=== PATIENT | female | born 1960 | race Hispanic/Latino ===

== ENCOUNTER 2020-10-25 10:46 | Inpatient (IN) | payer OTHER ==
[~2020-10-25] VITALS: Ht 149.9 cm; Wt 57.8 kg
[2020-10-25] MEDS ORDERED: CEFEPIME HCL 1GM 1 GM in SODIUM CHLORIDE 0.9% 50ML 50 ML IV STA ×2 (11:10→16:19)
[2020-10-25 12:11] LABS: BASOPHILS % 0.2 % (0.0-1.0); EOSINOPHILS % 0.6 % (0.0-6.0); HEMATOCRIT 34.4 % (34.2-44.1); HEMOGLOBIN 11.2 g/dL (12.0-16.0); LYMPHOCYTES # (AUTO) 0.5 (1.0-3.2); LYMPHOCYTES % 10.9 % (18.0-39.1); MEAN CORPUSCULAR HEMOGLOBIN 28.1 pg (28-32); MEAN CORPUSCULAR HGB CONC 32.6 g/dL (31-35); MEAN CORPUSCULAR VOLUME 86.4 fL (81-99); MONOCYTES # (AUTO) 0.4 (0.2-0.8); MONOCYTES % 8.9 % (4.4-11.3); NEUTROPHILS # (AUTO) 3.9 (2.1-6.9); NEUTROPHILS % 79.2 % (38.7-80.0); PLATELET COUNT 268 x10e3/uL (140-360); RED BLOOD COUNT 3.98 x10e6/uL (3.6-5.1); RED CELL DISTRIBUTION WIDTH 16.6 % (11.7-14.4)
[2020-10-25 12:23] LABS: INR 0.92
[2020-10-25 12:30] LABS: ALANINE AMINOTRANSFERASE 25 IU/L (0-55); ALBUMIN 3.1 g/dL (3.5-5.0); ALBUMIN/GLOBULIN RATIO 0.5 (0.8-2.0); ALKALINE PHOSPHATASE 70 IU/L (40-150); ANION GAP 13.7 mmol/L (8-16); BLOOD UREA NITROGEN 20 mg/dL (7-26); BUN/CREATININE RATIO 27 (6-25); CALCIUM 8.5 mg/dL (8.4-10.2); CARBON DIOXIDE 23 mmol/L (22-29); CHLORIDE 107 mmol/L (98-107); CREATININE, SERUM 0.73 mg/dL (0.57-1.11); EST GLOMERULAR FILTRATION RATE > 60 ML/MIN (60-); GLUCOSE 110 mg/dL (74-118); POTASSIUM 3.7 mmol/L (3.5-5.1); SODIUM 140 mmol/L (136-145)
[2020-10-25] MEDS: VANCOMYCIN 750MG/NS 150ML IVPB 150 ML IV SCH ×2 (17:11→19:58)
[2020-10-25 20:00] VITALS: BP 165/85
[2020-10-25 21:00] VITALS: BP 165/85
[2020-10-25 21:36] VITALS: BP 165/85
[2020-10-25] MEDS ORDERED: PIPER-TAZ 3.375 GM / NS 50ML IV SCH (22:00)
[2020-10-25] MEDS: PIPERACILLIN/TAZOBAC 3.375 GM in SODIUM CHLORIDE 0.9% 50ML 50 ML IV SCH (22:00)
[2020-10-25] MEDS: ACETAMINOPHEN 325 MG TAB PO PRN (23:00)
[2020-10-25] MEDS ORDERED: SODIUM CHLORIDE 0.9% 1000ML 1,000 ML ONE (23:07)
[2020-10-25] MEDS ORDERED: PIPERACILLIN/TAZOBAC 3.375 GM VIAL ONE (23:07)
[2020-10-25] MEDS ORDERED: SODIUM CHLORIDE 0.9% 50ML 50 ML ONE (23:07)
[2020-10-26] VITALS (7 sets, daily range): BP systolic 118–150; BP diastolic 59–80
[2020-10-26] MEDS ORDERED: SODIUM CHLORIDE 0.9% 50ML 50 ML ONE ×2 (03:10→14:45)
[2020-10-26] MEDS ORDERED: PIPERACILLIN/TAZOBAC 3.375 GM VIAL ONE ×3 (03:10→21:55)
[2020-10-26] MEDS: KETOROLAC TROMETHAMINE 30 MG/ML VIAL IV PRN ×2 (03:30→12:03)
[2020-10-26] MEDS: PIPERACILLIN/TAZOBAC 3.375 GM in SODIUM CHLORIDE 0.9% 50ML 50 ML IV SCH ×3 (05:49→21:53)
[2020-10-26 06:15] LABS: EOSINOPHILS # (AUTO) 0.1 (0.0-0.4); HEMATOCRIT 30.4 % (34.2-44.1); HEMOGLOBIN 9.9 g/dL (12.0-16.0); LYMPHOCYTES # (AUTO) 0.9 (1.0-3.2); LYMPHOCYTES % 25.4 % (18.0-39.1); MEAN CORPUSCULAR HGB CONC 32.6 g/dL (31-35); MEAN CORPUSCULAR VOLUME 86.1 fL (81-99); MONOCYTES # (AUTO) 0.5 (0.2-0.8); MONOCYTES % 14.4 % (4.4-11.3); NEUTROPHILS # (AUTO) 2.1 (2.1-6.9); NEUTROPHILS % 58.2 % (38.7-80.0); PLATELET COUNT 238 x10e3/uL (140-360); RED BLOOD COUNT 3.53 x10e6/uL (3.6-5.1); RED CELL DISTRIBUTION WIDTH 16.7 % (11.7-14.4)
[2020-10-26 06:31] LABS: ANION GAP 11.2 mmol/L (8-16); BLOOD UREA NITROGEN 22 mg/dL (7-26); BUN/CREATININE RATIO 31 (6-25); CARBON DIOXIDE 22 mmol/L (22-29); CHLORIDE 109 mmol/L (98-107); CREATININE, SERUM 0.71 mg/dL (0.57-1.11); EST GLOMERULAR FILTRATION RATE > 60 ML/MIN (60-); GLUCOSE 82 mg/dL (74-118); POTASSIUM 3.2 mmol/L (3.5-5.1); SODIUM 139 mmol/L (136-145)
[2020-10-26] MEDS ORDERED: POTASSIUM CHLORIDE 20 MEQ TAB CR PO ONE (08:20)
[2020-10-26] MEDS: VANCOMYCIN 750MG/NS 150ML IVPB 150 ML IV SCH ×2 (09:56→21:57)
[2020-10-26] MEDS: ACETAMINOPHEN 325 MG TAB PO PRN ×2 (11:25→19:45)
[2020-10-26] MEDS ORDERED: GADOBENATE DIMEGLUMINE 1 ML IV ONE (12:29)
[2020-10-26] MEDS: MUPIROCIN 2% OINT 22 GM TUBE TOP SCH (21:00)
[2020-10-26] MEDS: MORPHINE SULFATE INJ 2 MG/ML SYR IV PRN (21:51)
[2020-10-26] MEDS ORDERED: SODIUM CHLORIDE 0.9% 50ML 100 ML ONE (21:55)
[2020-10-27] VITALS (8 sets, daily range): BP systolic 110–144; BP diastolic 47–73
[2020-10-27] MEDS: MORPHINE SULFATE INJ 2 MG/ML SYR IV PRN ×2 (04:56→21:50)
[2020-10-27] MEDS ORDERED: SODIUM CHLORIDE 0.9% 50ML 50 ML ONE ×3 (04:59→21:48)
[2020-10-27] MEDS ORDERED: PIPERACILLIN/TAZOBAC 3.375 GM VIAL ONE ×3 (04:59→21:48)
[2020-10-27] MEDS: PIPERACILLIN/TAZOBAC 3.375 GM in SODIUM CHLORIDE 0.9% 50ML 50 ML IV SCH ×3 (05:51→22:00)
[2020-10-27 06:05] LABS: EOSINOPHILS # (AUTO) 0.1 (0.0-0.4); EOSINOPHILS % 2.5 % (0.0-6.0); HEMATOCRIT 30.8 % (34.2-44.1); HEMOGLOBIN 9.7 g/dL (12.0-16.0); LYMPHOCYTES # (AUTO) 0.8 (1.0-3.2); LYMPHOCYTES % 29.5 % (18.0-39.1); MEAN CORPUSCULAR HEMOGLOBIN 27.5 pg (28-32); MEAN CORPUSCULAR HGB CONC 31.5 g/dL (31-35); MEAN CORPUSCULAR VOLUME 87.3 fL (81-99); MONOCYTES # (AUTO) 0.4 (0.2-0.8); NEUTROPHILS # (AUTO) 1.5 (2.1-6.9); NEUTROPHILS % 53.6 % (38.7-80.0); PLATELET COUNT 241 x10e3/uL (140-360); RED BLOOD COUNT 3.53 x10e6/uL (3.6-5.1); RED CELL DISTRIBUTION WIDTH 16.6 % (11.7-14.4)
[2020-10-27 06:33] LABS: ALANINE AMINOTRANSFERASE 20 IU/L (0-55); ALBUMIN 2.7 g/dL (3.5-5.0); ALBUMIN/GLOBULIN RATIO 0.5 (0.8-2.0); ALKALINE PHOSPHATASE 65 IU/L (40-150); ANION GAP 12.8 mmol/L (8-16); BLOOD UREA NITROGEN 20 mg/dL (7-26); BUN/CREATININE RATIO 30 (6-25); CARBON DIOXIDE 22 mmol/L (22-29); CHLORIDE 112 mmol/L (98-107); CREATININE, SERUM 0.67 mg/dL (0.57-1.11); EST GLOMERULAR FILTRATION RATE > 60 ML/MIN (60-); GLUCOSE 82 mg/dL (74-118); POTASSIUM 3.8 mmol/L (3.5-5.1); SODIUM 143 mmol/L (136-145)
[2020-10-27 07:12] LABS: FERRITIN 96.75 ng/mL (4.63-204.00)
[2020-10-27] MEDS: MUPIROCIN 2% OINT 22 GM TUBE TOP SCH ×3 (09:00→21:25)
[2020-10-27] MEDS ORDERED: OYST-CAL-D 500MG TABLET PO ONE (10:00)
[2020-10-27] MEDS: FERROUS SULFATE 325 MG TAB PO SCH (10:30)
[2020-10-27] MEDS: CYANOCOBALAMIN 1,000 MCG TAB PO SCH (10:30)
[2020-10-27] MEDS: VANCOMYCIN 750MG/NS 150ML IVPB 150 ML IV SCH ×2 (10:30→21:00)
[2020-10-27] MEDS: ONDANSETRON HCL INJ 2MG/ML 2ML 2 MG/ML VIAL IV PRN (21:50)
[2020-10-27] MEDS ORDERED: ENBREL50 MG/1 M1 (23:47)
[2020-10-27] MEDS ORDERED: PREDNISONE5 MG PO (23:53)
[2020-10-28] VITALS (10 sets, daily range): BP systolic 116–138; BP diastolic 54–66
[2020-10-28] MEDS: SODIUM CHLORIDE 0.9% 1000ML 1,000 ML IV SCH ×3 (00:01→19:53)
[2020-10-28] MEDS ORDERED: SODIUM CHLORIDE 0.9% 50ML 50 ML ONE ×3 (03:27→21:22)
[2020-10-28] MEDS: MORPHINE SULFATE INJ 2 MG/ML SYR IV PRN ×2 (03:55→21:24)
[2020-10-28] MEDS: PIPERACILLIN/TAZOBAC 3.375 GM in SODIUM CHLORIDE 0.9% 50ML 50 ML IV SCH ×3 (06:00→21:24)
[2020-10-28 06:16] LABS: EOSINOPHILS # (AUTO) 0.1 (0.0-0.4); EOSINOPHILS % 2.2 % (0.0-6.0); HEMATOCRIT 30.3 % (34.2-44.1); HEMOGLOBIN 9.7 g/dL (12.0-16.0); LYMPHOCYTES # (AUTO) 0.8 (1.0-3.2); LYMPHOCYTES % 24.4 % (18.0-39.1); MEAN CORPUSCULAR HEMOGLOBIN 27.7 pg (28-32); MEAN CORPUSCULAR VOLUME 86.6 fL (81-99); MONOCYTES # (AUTO) 0.3 (0.2-0.8); NEUTROPHILS # (AUTO) 2.1 (2.1-6.9); NEUTROPHILS % 64.1 % (38.7-80.0); PLATELET COUNT 255 x10e3/uL (140-360); RED CELL DISTRIBUTION WIDTH 16.5 % (11.7-14.4)
[2020-10-28 06:24] LABS: INR 1.01; PROTHROMBIN TIME 13.9 seconds (11.9-14.5)
[2020-10-28 06:25] LABS: PARTIAL THROMBOPLASTIN TIME 31.1 seconds (23.8-35.5)
[2020-10-28 06:33] LABS: ANION GAP 12.4 mmol/L (8-16); BLOOD UREA NITROGEN 15 mg/dL (7-26); BUN/CREATININE RATIO 21 (6-25); CALCIUM 8.5 mg/dL (8.4-10.2); CARBON DIOXIDE 22 mmol/L (22-29); CHLORIDE 111 mmol/L (98-107); EST GLOMERULAR FILTRATION RATE > 60 ML/MIN (60-); GLUCOSE 78 mg/dL (74-118); POTASSIUM 3.4 mmol/L (3.5-5.1); SODIUM 142 mmol/L (136-145)
[2020-10-28] MEDS ORDERED: POTASSIUM CHLORIDE 20 MEQ TAB CR PO ONE ×2 (09:00→09:35)
[2020-10-28] MEDS ORDERED: ASPIRIN 81 MG CHEW TAB PO SCH (09:00)
[2020-10-28] MEDS: MUPIROCIN 2% OINT 22 GM TUBE TOP SCH ×2 (09:00→21:00)
[2020-10-28] MEDS ORDERED: HEPARIN SOD/SOD CHLORIDE 2,000 ML ONE (09:05)
[2020-10-28] MEDS ORDERED: FENTANYL CITRATE/PF 100MCG/2 ML INJ ONE (09:05)
[2020-10-28] MEDS ORDERED: MIDAZOLAM HCL 2 MG/2 ML VIAL ONE (09:05)
[2020-10-28] MEDS ORDERED: LIDOCAINE HCL 2% LOCAL 20 ML VIAL ONE (09:05)
[2020-10-28] MEDS ORDERED: SODIUM CHLORIDE 0.9% 1000ML 1,000 ML ONE (09:07)
[2020-10-28] MEDS ORDERED: IOPAMIDOL 300MG/ML 100 ML INFUS..BTL IV ONE (09:07)
[2020-10-28] MEDS: CYANOCOBALAMIN 1,000 MCG TAB PO SCH (09:26)
[2020-10-28] MEDS: FERROUS SULFATE 325 MG TAB PO SCH (09:26)
[2020-10-28] MEDS: VANCOMYCIN 750MG/NS 150ML IVPB 150 ML IV SCH (10:38)
[2020-10-28] MEDS ORDERED: PREDNISONE 5 MG TAB PO SCH (11:30)
[2020-10-28] MEDS ORDERED: PIPERACILLIN/TAZOBAC 3.375 GM VIAL ONE ×2 (14:53→21:22)
[2020-10-28] MEDS ORDERED: CLOPIDOGREL BISULFATE 75 MG TAB ONE (17:02)
[2020-10-28] MEDS ORDERED: ASPIRIN 325 MG TAB ONE (17:02)
[2020-10-28] MEDS: ONDANSETRON HCL INJ 2MG/ML 2ML 2 MG/ML VIAL IV PRN (21:24)
[2020-10-29] VITALS (7 sets, daily range): BP systolic 91–121; BP diastolic 41–53
[2020-10-29] MEDS: MORPHINE SULFATE INJ 2 MG/ML SYR IV PRN (03:47)
[2020-10-29] MEDS: SODIUM CHLORIDE 0.9% 1000ML 1,000 ML IV SCH (05:39)
[2020-10-29] MEDS: PIPERACILLIN/TAZOBAC 3.375 GM in SODIUM CHLORIDE 0.9% 50ML 50 ML IV SCH ×3 (05:39→21:07)
[2020-10-29 05:51] LABS: EOSINOPHILS # (AUTO) 0.1 (0.0-0.4); EOSINOPHILS % 2.5 % (0.0-6.0); HEMATOCRIT 30.3 % (34.2-44.1); HEMOGLOBIN 9.6 g/dL (12.0-16.0); LYMPHOCYTES # (AUTO) 0.7 (1.0-3.2); LYMPHOCYTES % 22.5 % (18.0-39.1); MEAN CORPUSCULAR HEMOGLOBIN 27.8 pg (28-32); MEAN CORPUSCULAR HGB CONC 31.7 g/dL (31-35); MEAN CORPUSCULAR VOLUME 87.8 fL (81-99); MONOCYTES # (AUTO) 0.3 (0.2-0.8); MONOCYTES % 9.8 % (4.4-11.3); NEUTROPHILS % 64.9 % (38.7-80.0); PLATELET COUNT 245 x10e3/uL (140-360); RED BLOOD COUNT 3.45 x10e6/uL (3.6-5.1); RED CELL DISTRIBUTION WIDTH 16.5 % (11.7-14.4)
[2020-10-29 06:10] LABS: ANION GAP 16.7 mmol/L (8-16); BLOOD UREA NITROGEN 12 mg/dL (7-26); BUN/CREATININE RATIO 20 (6-25); CALCIUM 8.2 mg/dL (8.4-10.2); CARBON DIOXIDE 19 mmol/L (22-29); CHLORIDE 110 mmol/L (98-107); CREATININE, SERUM 0.61 mg/dL (0.57-1.11); EST GLOMERULAR FILTRATION RATE > 60 ML/MIN (60-); GLUCOSE 64 mg/dL (74-118); MAGNESIUM 1.6 MG/DL (1.3-2.1); POTASSIUM 3.7 mmol/L (3.5-5.1); SODIUM 142 mmol/L (136-145)
[2020-10-29] MEDS: ACETAMINOPHEN 325 MG TAB PO PRN (06:24)
[2020-10-29] MEDS: ASPIRIN 81 MG CHEW TAB PO SCH (10:26)
[2020-10-29] MEDS: FERROUS SULFATE 325 MG TAB PO SCH (10:28)
[2020-10-29] MEDS: CLOPIDOGREL BISULFATE 75 MG TAB PO SCH (10:28)
[2020-10-29] MEDS: PREDNISONE 5 MG TAB PO SCH (10:28)
[2020-10-29] MEDS: MUPIROCIN 2% OINT 22 GM TUBE TOP SCH ×2 (10:28→21:06)
[2020-10-29] MEDS: CYANOCOBALAMIN 1,000 MCG TAB PO SCH (10:28)
[2020-10-29] MEDS: VANCOMYCIN HCL 1.25 GM in SODIUM CHLORIDE 0.9% 250ML 250 ML IV SCH (12:12)
[2020-10-29] MEDS ORDERED: PIPERACILLIN/TAZOBAC 3.375 GM VIAL ONE ×2 (14:19→21:01)
[2020-10-29] MEDS ORDERED: SODIUM CHLORIDE 0.9% 50ML 50 ML ONE ×2 (14:20→21:01)
[2020-10-29] MEDS: METHYLPREDNISOLONE SOD SUCC 40 MG/ML VIAL 1ML IV SCH ×2 (16:42→21:06)
[2020-10-29] MEDS: CYANOCOBALAMIN INJ 1,000 MCG/ML VIAL IM SCH (16:42)
[2020-10-29] MEDS: ATORVASTATIN 40 MG TAB PO SCH (21:00)
[2020-10-30] VITALS (8 sets, daily range): BP systolic 125–158; BP diastolic 53–84
[2020-10-30] MEDS ORDERED: SODIUM CHLORIDE 0.9% 50ML 50 ML ONE ×3 (05:04→21:11)
[2020-10-30] MEDS ORDERED: PIPERACILLIN/TAZOBAC 3.375 GM VIAL ONE ×3 (05:04→21:10)
[2020-10-30] MEDS: PIPERACILLIN/TAZOBAC 3.375 GM in SODIUM CHLORIDE 0.9% 50ML 50 ML IV SCH ×3 (05:49→22:12)
[2020-10-30 07:16] LABS: HEMATOCRIT 31.8 % (34.2-44.1); HEMOGLOBIN 10.3 g/dL (12.0-16.0); LYMPHOCYTES # (AUTO) 0.4 (1.0-3.2); LYMPHOCYTES % 15.6 % (18.0-39.1); MEAN CORPUSCULAR HGB CONC 32.4 g/dL (31-35); MEAN CORPUSCULAR VOLUME 86.4 fL (81-99); MONOCYTES # (AUTO) 0.1 (0.2-0.8); MONOCYTES % 2.7 % (4.4-11.3); NEUTROPHILS # (AUTO) 2.1 (2.1-6.9); NEUTROPHILS % 81.3 % (38.7-80.0); PLATELET COUNT 280 x10e3/uL (140-360); RED BLOOD COUNT 3.68 x10e6/uL (3.6-5.1); RED CELL DISTRIBUTION WIDTH 15.9 % (11.7-14.4)
[2020-10-30 07:40] LABS: ALANINE AMINOTRANSFERASE 20 IU/L (0-55); ALBUMIN 2.6 g/dL (3.5-5.0); ALBUMIN/GLOBULIN RATIO 0.5 (0.8-2.0); ALKALINE PHOSPHATASE 117 IU/L (40-150); ANION GAP 16.7 mmol/L (8-16); BLOOD UREA NITROGEN 19 mg/dL (7-26); BUN/CREATININE RATIO 29 (6-25); CALCIUM 8.3 mg/dL (8.4-10.2); CARBON DIOXIDE 18 mmol/L (22-29); CHLORIDE 108 mmol/L (98-107); CREATININE, SERUM 0.65 mg/dL (0.57-1.11); EST GLOMERULAR FILTRATION RATE > 60 ML/MIN (60-); GLUCOSE 131 mg/dL (74-118); POTASSIUM 3.7 mmol/L (3.5-5.1); SODIUM 139 mmol/L (136-145)
[2020-10-30] MEDS: METHYLPREDNISOLONE SOD SUCC 40 MG/ML VIAL 1ML IV SCH ×2 (08:18→22:11)
[2020-10-30] MEDS: CYANOCOBALAMIN INJ 1,000 MCG/ML VIAL IM SCH (08:18)
[2020-10-30] MEDS: FERROUS SULFATE 325 MG TAB PO SCH (08:19)
[2020-10-30] MEDS: MUPIROCIN 2% OINT 22 GM TUBE TOP SCH ×2 (08:19→22:11)
[2020-10-30] MEDS: ASPIRIN 81 MG CHEW TAB PO SCH (08:19)
[2020-10-30] MEDS: PREDNISONE 5 MG TAB PO SCH (08:19)
[2020-10-30] MEDS: VANCOMYCIN HCL 1.25 GM in SODIUM CHLORIDE 0.9% 250ML 250 ML IV SCH (09:00)
[2020-10-30] MEDS: CLOPIDOGREL BISULFATE 75 MG TAB PO SCH (10:32)
[2020-10-30] MEDS: LACTOBACILLUS ACIDOPHILUS CAPSULE PO SCH ×2 (13:03→16:54)
[2020-10-30] MEDS ORDERED: LOPERAMIDE HCL 2 MG CAP PO ONE (13:15)
[2020-10-30] MEDS ORDERED: ATORVASTATIN 20 MG TAB PO SCH (21:00)
[2020-10-30] MEDS: ATORVASTATIN 40 MG TAB PO SCH (22:11)
[2020-10-30] MEDS: ACETAMINOPHEN 325 MG TAB PO PRN (22:12)
[2020-10-31] VITALS (8 sets, daily range): BP systolic 127–141; BP diastolic 53–68
[2020-10-31] MEDS: PIPERACILLIN/TAZOBAC 3.375 GM in SODIUM CHLORIDE 0.9% 50ML 50 ML IV SCH ×3 (05:32→22:28)
[2020-10-31] MEDS ORDERED: PIPERACILLIN/TAZOBAC 3.375 GM VIAL ONE ×3 (05:42→20:45)
[2020-10-31] MEDS ORDERED: SODIUM CHLORIDE 0.9% 50ML 50 ML ONE ×3 (05:42→20:45)
[2020-10-31 06:57] LABS: HEMATOCRIT 30.7 % (34.2-44.1); LYMPHOCYTES # (AUTO) 0.5 (1.0-3.2); LYMPHOCYTES % 13.1 % (18.0-39.1); MEAN CORPUSCULAR HEMOGLOBIN 28.1 pg (28-32); MEAN CORPUSCULAR HGB CONC 32.6 g/dL (31-35); MEAN CORPUSCULAR VOLUME 86.2 fL (81-99); MONOCYTES # (AUTO) 0.2 (0.2-0.8); MONOCYTES % 5.3 % (4.4-11.3); NEUTROPHILS # (AUTO) 3.2 (2.1-6.9); NEUTROPHILS % 81.1 % (38.7-80.0); PLATELET COUNT 300 x10e3/uL (140-360); RED BLOOD COUNT 3.56 x10e6/uL (3.6-5.1); RED CELL DISTRIBUTION WIDTH 16.2 % (11.7-14.4)
[2020-10-31 07:32] LABS: INR 1.03; PROTHROMBIN TIME 14.1 seconds (11.9-14.5)
[2020-10-31 07:33] LABS: PARTIAL THROMBOPLASTIN TIME 27.8 seconds (23.8-35.5)
[2020-10-31 07:41] LABS: ALANINE AMINOTRANSFERASE 16 IU/L (0-55); ALBUMIN 2.6 g/dL (3.5-5.0); ALBUMIN/GLOBULIN RATIO 0.5 (0.8-2.0); ALKALINE PHOSPHATASE 61 IU/L (40-150); ANION GAP 10.7 mmol/L (8-16); BLOOD UREA NITROGEN 22 mg/dL (7-26); BUN/CREATININE RATIO 34 (6-25); CALCIUM 8.1 mg/dL (8.4-10.2); CARBON DIOXIDE 23 mmol/L (22-29); CHLORIDE 110 mmol/L (98-107); CREATININE, SERUM 0.65 mg/dL (0.57-1.11); EST GLOMERULAR FILTRATION RATE > 60 ML/MIN (60-); GLUCOSE 152 mg/dL (74-118); POTASSIUM 3.7 mmol/L (3.5-5.1); SODIUM 140 mmol/L (136-145)
[2020-10-31] MEDS: CYANOCOBALAMIN INJ 1,000 MCG/ML VIAL IM SCH (08:55)
[2020-10-31] MEDS: CLOPIDOGREL BISULFATE 75 MG TAB PO SCH (08:56)
[2020-10-31] MEDS: PREDNISONE 5 MG TAB PO SCH (08:56)
[2020-10-31] MEDS: LACTOBACILLUS ACIDOPHILUS CAPSULE PO SCH ×2 (08:56→16:46)
[2020-10-31] MEDS: FERROUS SULFATE 325 MG TAB PO SCH (08:56)
[2020-10-31] MEDS: VANCOMYCIN HCL 1.25 GM in SODIUM CHLORIDE 0.9% 250ML 250 ML IV SCH (10:42)
[2020-10-31] MEDS ORDERED: FENTANYL CITRATE/PF 100MCG/2 ML INJ ONE (13:16)
[2020-10-31] MEDS: MUPIROCIN 2% OINT 22 GM TUBE TOP SCH ×2 (14:19→20:46)
[2020-10-31] MEDS: VANCOMYCIN 750MG/NS 150ML IVPB 150 ML IV SCH (20:46)
[2020-10-31] MEDS: ATORVASTATIN 40 MG TAB PO SCH (20:46)
[2020-10-31] MEDS ORDERED: VANCOMYCIN 1GM/NS 250 ML 250 ML IV SCH (21:00)
[2020-11-01] VITALS (9 sets, daily range): BP systolic 109–143; BP diastolic 52–68
[2020-11-01] MEDS ORDERED: PIPERACILLIN/TAZOBAC 3.375 GM VIAL ONE (05:34)
[2020-11-01] MEDS ORDERED: SODIUM CHLORIDE 0.9% 50ML 50 ML ONE (05:34)
[2020-11-01] MEDS: PIPERACILLIN/TAZOBAC 3.375 GM in SODIUM CHLORIDE 0.9% 50ML 50 ML IV SCH ×3 (05:43→22:12)
[2020-11-01 06:13] LABS: BASOPHILS % 0.2 % (0.0-1.0); EOSINOPHILS # (AUTO) 0.1 (0.0-0.4); EOSINOPHILS % 2.1 % (0.0-6.0); HEMATOCRIT 31.6 % (34.2-44.1); HEMOGLOBIN 10.2 g/dL (12.0-16.0); LYMPHOCYTES # (AUTO) 1.2 (1.0-3.2); LYMPHOCYTES % 26.6 % (18.0-39.1); MEAN CORPUSCULAR HEMOGLOBIN 27.6 pg (28-32); MEAN CORPUSCULAR HGB CONC 32.3 g/dL (31-35); MEAN CORPUSCULAR VOLUME 85.6 fL (81-99); MONOCYTES # (AUTO) 0.5 (0.2-0.8); MONOCYTES % 10.9 % (4.4-11.3); NEUTROPHILS # (AUTO) 2.6 (2.1-6.9); PLATELET COUNT 298 x10e3/uL (140-360); RED BLOOD COUNT 3.69 x10e6/uL (3.6-5.1); RED CELL DISTRIBUTION WIDTH 16.4 % (11.7-14.4)
[2020-11-01 06:42] LABS: ANION GAP 12.9 mmol/L (8-16); BLOOD UREA NITROGEN 21 mg/dL (7-26); BUN/CREATININE RATIO 31 (6-25); CARBON DIOXIDE 22 mmol/L (22-29); CHLORIDE 113 mmol/L (98-107); CREATININE, SERUM 0.68 mg/dL (0.57-1.11); EST GLOMERULAR FILTRATION RATE > 60 ML/MIN (60-); GLUCOSE 87 mg/dL (74-118); SODIUM 145 mmol/L (136-145)
[2020-11-01 06:44] LABS: POTASSIUM 2.9 mmol/L (3.5-5.1)
[2020-11-01] MEDS ORDERED: POTASSIUM CHLORIDE 20 MEQ TAB CR PO ONE ×2 (07:20→09:00)
[2020-11-01] MEDS: MUPIROCIN 2% OINT 22 GM TUBE TOP SCH ×2 (08:36→20:26)
[2020-11-01] MEDS: PREDNISONE 5 MG TAB PO SCH (08:36)
[2020-11-01] MEDS: LACTOBACILLUS ACIDOPHILUS CAPSULE PO SCH ×2 (08:36→17:00)
[2020-11-01] MEDS: FERROUS SULFATE 325 MG TAB PO SCH (08:36)
[2020-11-01] MEDS: VANCOMYCIN 750MG/NS 150ML IVPB 150 ML IV SCH ×2 (08:36→20:26)
[2020-11-01] MEDS: CLOPIDOGREL BISULFATE 75 MG TAB PO SCH (09:00)
[2020-11-01] MEDS: ACETAMINOPHEN 325 MG TAB PO PRN (09:11)
[2020-11-01] MEDS: ONDANSETRON HCL INJ 2MG/ML 2ML 2 MG/ML VIAL IV PRN ×2 (09:32→23:05)
[2020-11-01] MEDS ORDERED: SEVOFLURANE INHAL SOLN 250 ML PEN BTL ONE (12:32)
[2020-11-01] MEDS ORDERED: DEXAMETHASONE SOD PHOS INJ 4 MG/ML VIAL ONE (12:32)
[2020-11-01] MEDS ORDERED: LIDOCAINE HCL 2% LOCAL INJ 5 ML SDV VIAL INJ ONE (12:32)
[2020-11-01] MEDS ORDERED: PROPOFOL IV EMULSION 10 MG/ML 20 ML VIAL ONE (12:32)
[2020-11-01] MEDS ORDERED: BETAMETHASONE DISODIUM PHOS 6 MG/ML VIAL ONE (14:10)
[2020-11-01] MEDS ORDERED: BUPIVACAINE HCL 0.5% INJ 30 ML VIAL INJ ONE (14:10)
[2020-11-01] MEDS ORDERED: LIDOCAINE HCL 1% LOCAL INJ 20 ML VIAL ONE (14:10)
[2020-11-01] MEDS ORDERED: MUPIROCIN 2% OINT 22 GM TUBE ONE (14:11)
[2020-11-01] MEDS ORDERED: VANCOMYCIN HCL 1 GM VIAL ONE (16:38)
[2020-11-01] MEDS ORDERED: FENTANYL CITRATE/PF 100MCG/2 ML INJ ONE (17:51)
[2020-11-01] MEDS ORDERED: MORPHINE SULFATE INJ 2 MG/ML SYR ONE (18:17)
[2020-11-01] MEDS: ATORVASTATIN 40 MG TAB PO SCH (20:32)
[2020-11-01] MEDS: MORPHINE SULFATE INJ 2 MG/ML SYR IV PRN (23:04)
[2020-11-02] VITALS (7 sets, daily range): BP systolic 112–142; BP diastolic 54–85
[2020-11-02] MEDS: MORPHINE SULFATE INJ 2 MG/ML SYR IV PRN ×4 (03:13→17:56)
[2020-11-02 05:56] LABS: BASOPHILS % 0.2 % (0.0-1.0); EOSINOPHILS % 0.4 % (0.0-6.0); HEMATOCRIT 31.5 % (34.2-44.1); HEMOGLOBIN 10.3 g/dL (12.0-16.0); LYMPHOCYTES # (AUTO) 0.8 (1.0-3.2); LYMPHOCYTES % 17.2 % (18.0-39.1); MEAN CORPUSCULAR HEMOGLOBIN 28.1 pg (28-32); MEAN CORPUSCULAR HGB CONC 32.7 g/dL (31-35); MEAN CORPUSCULAR VOLUME 85.8 fL (81-99); MONOCYTES # (AUTO) 0.5 (0.2-0.8); MONOCYTES % 10.2 % (4.4-11.3); NEUTROPHILS # (AUTO) 3.3 (2.1-6.9); NEUTROPHILS % 71.8 % (38.7-80.0); PLATELET COUNT 280 x10e3/uL (140-360); RED BLOOD COUNT 3.67 x10e6/uL (3.6-5.1); RED CELL DISTRIBUTION WIDTH 16.7 % (11.7-14.4)
[2020-11-02] MEDS: PIPERACILLIN/TAZOBAC 3.375 GM in SODIUM CHLORIDE 0.9% 50ML 50 ML IV SCH ×2 (05:58→13:45)
[2020-11-02 06:17] LABS: ANION GAP 14.7 mmol/L (8-16); BLOOD UREA NITROGEN 19 mg/dL (7-26); BUN/CREATININE RATIO 31 (6-25); CALCIUM 7.7 mg/dL (8.4-10.2); CARBON DIOXIDE 20 mmol/L (22-29); CHLORIDE 114 mmol/L (98-107); CREATININE, SERUM 0.62 mg/dL (0.57-1.11); EST GLOMERULAR FILTRATION RATE > 60 ML/MIN (60-); GLUCOSE 95 mg/dL (74-118); MAGNESIUM 1.9 MG/DL (1.3-2.1); POTASSIUM 3.7 mmol/L (3.5-5.1); SODIUM 145 mmol/L (136-145)
[2020-11-02] MEDS: MUPIROCIN 2% OINT 22 GM TUBE TOP SCH (09:00)
[2020-11-02] MEDS: VANCOMYCIN 750MG/NS 150ML IVPB 150 ML IV SCH (09:07)
[2020-11-02] MEDS: FERROUS SULFATE 325 MG TAB PO SCH (09:07)
[2020-11-02] MEDS: PREDNISONE 5 MG TAB PO SCH (09:07)
[2020-11-02] MEDS: LACTOBACILLUS ACIDOPHILUS CAPSULE PO SCH ×2 (09:07→17:56)
[2020-11-02] MEDS: CLOPIDOGREL BISULFATE 75 MG TAB PO SCH (09:07)
[2020-11-02] MEDS ORDERED: HYDROCODON-ACE1 EA11 PO (14:57)
[2020-11-02] MEDS ORDERED: DOXYCYCLINE HY100 MG PO (14:57)
[2020-11-02] MEDS ORDERED: Atorvastatin PO (14:57)
[2020-11-02] MEDS ORDERED: PLAVIX75 MG PO (14:57)
[2020-11-02] MEDS ORDERED: ASPIRIN CHEW81 MG PO (14:57)
[2020-11-02] MEDS ORDERED: Lactobacillus Acidophilus PO (14:57)
[2020-11-02] MEDS ORDERED: POTASSIUM CHLO10 ME1 PO (15:08)
[2020-11-02] MEDS ORDERED: ONDANSETRON HCL 4 MG ORAL DISINTEGRATING TAB PO PRN (18:45)
== END 2020-11-02 20:15 | disposition home or self-care (01) | DRG 253 ==
LOC: ER 11:17 → ERHOLD 15:35 → INTOOBSV 15:35 → MED/SURG3 21:09 → OBSVTOIN 10-26 14:28
PROVIDERS: ADMIT Internal Medicine; ATTEND Internal Medicine
PROC: 0KBV0ZZ Excision of Right Foot Muscle, Open Approach (ICD-10-PCS; principal; 2020-10-27)
PROC: B41D1ZZ Fluoroscopy of Aorta and Bilateral Lower Extremity Arteries using Low Osmolar Contrast (ICD-10-PCS; 2020-10-28)
PROC: 047P3Z1 Dilation of Right Anterior Tibial Artery using Drug-Coated Balloon, Percutaneous Approach (ICD-10-PCS; 2020-10-28)
PROC: 0HDMXZZ Extraction of Right Foot Skin, External Approach (ICD-10-PCS; 2020-11-01)
PROC: 0L8V3ZZ Division of Right Foot Tendon, Percutaneous Approach (ICD-10-PCS; 2020-11-01)
PROC: 0SGM04Z Fusion of Right Metatarsal-Phalangeal Joint with Internal Fixation Device, Open Approach (ICD-10-PCS; 2020-11-01)
PROC: 0QBQ0ZZ Excision of Right Toe Phalanx, Open Approach (ICD-10-PCS; 2020-11-01)
DX: I70.235 Atherosclerosis of native arteries of right leg with ulceration of other part of foot (principal); L03.115 Cellulitis of right lower limb; K52.1 Toxic gastroenteritis and colitis; M86.8X7 Other osteomyelitis, ankle and foot; I70.222 Atherosclerosis of native arteries of extremities with rest pain, left leg; M06.9 Rheumatoid arthritis, unspecified; Z88.5 Allergy status to narcotic agent; D63.8 Anemia in other chronic diseases classified elsewhere; L97.514 Non-pressure chronic ulcer of other part of right foot with necrosis of bone; S93.141A Subluxation of metatarsophalangeal joint of right great toe, initial encounter; S91.101A Unspecified open wound of right great toe without damage to nail, initial encounter; M20.41 Other hammer toe(s) (acquired), right foot; M20.11 Hallux valgus (acquired), right foot; E53.8 Deficiency of other specified B group vitamins; T36.95XA Adverse effect of unspecified systemic antibiotic, initial encounter; Z20.822 Contact with and (suspected) exposure to COVID-19
CPT/HCPCS: 36247; 36415; 37228; 75716; 80048; 80053; 80202; 82607; 82728; 82746; 83036; 83540; 83605; 83735; 84132; 84466; 85025; 85610; 85651; 85730; 86140; 87040; 87493; 93005; 93306; 93925; 99152; 99153; 99251; 99284; C1713; C1725; C1760; C1769; C1887; G0378; J0692; J0720; J1100; J1885; J2001; J2250; J2270; J2405; J2543; J2920; J3010; J3370; J3420; J7030; J7050; J7512; Q9967; U0002